=== PATIENT | male | born 1965 | race Caucasian/White ===

== ENCOUNTER 2016-08-16 10:30 | Outpatient (RCR) | payer BC | END 2016-08-16 13:02 | disposition home or self-care (01) | LOC: MKS.ESL.PT 10:30 | DX: M77.32 Calcaneal spur, left foot (principal) ==

== ENCOUNTER → 2022-01-12 | Outpatient (CLI) | payer BC | LOC: COL.RAD 13:18 | DX: M47.816 Spondylosis without myelopathy or radiculopathy, lumbar region (principal); M43.16 Spondylolisthesis, lumbar region ==